=== PATIENT | male | born 1980 | race Caucasian/White ===

== ENCOUNTER → 2022-04-25 10:37 | Outpatient (CLI) | payer BC, SELFPAY ==
--- NOTE | ~2022-04-25 | XR_ITS ---
EXAMINATION: [id number] INDICATION: Anterior left chest pain TECHNIQUE: A frontal view of the chest and 3 views of the left ribs were obtained. COMPARISON: None. FINDINGS: The lungs are free of acute opacities. No pleural effusion or pneumothorax. The cardiomedia stinal silhouette is normal. There is subtle cortical irregularity at the anterolateral aspect of the left ninth rib. IMPRESSION: 1. Probable nondisplaced fracture of the anterolateral ninth rib. 2. No acute cardiopulmonary abnormality. Reviewed, dictated and finalized at location A.
== END ==
PROVIDERS: PCP Family Medicine; Visit Provider Family Medicine
DX: R07.81 Pleurodynia (principal)
CPT/HCPCS: 71101

== ENCOUNTER 2024-07-25 03:21 | Day surgery (SDC) | payer BC, SELFPAY ==
[2024-06-30 14:02] VITALS: BMI 28.1
[2024-07-25 09:12] VITALS: BP 119/75; PULSE 63; RESP 18; TEMP 36.6; O2SAT 100
[2024-07-25] MEDS: LACTATED RINGERS 1,000 ML 150 ML IV CONT (09:22)
--- NOTE | 2024-07-25 09:42 | WPDANESEPPF ---
Anes - Initial Pre Proc Eval Procedure: Operation Date: 07/25/24 10:30 Proposed Procedures p Screening Colonoscopy - Jaun Narayan MD Date/Time: 07/25/24 09:42 Surgeon: Jaun Narayan MD Pre Op Diagnosis: neoplasm screening Patient Data Age: 43 Gender: M Height: 1.75 m Weight: 88 kg Last Vital Signs Temp 36.6 C 07/25/24 09:12 Pulse 63 07/25/24 09:12 Resp 18 07/25/24 09:12 BP 119/75 07/25/24 09:12 Pulse Ox 100 07/25/24 09:12 O2 Del Method Room Air 07/25/24 09:12 Allergies Allergy/AdvReac Type Severity Reaction Status Date / Time No Known Allergies Allergy Verified 07/25/24 09:11 Home Medications Medication Instructions Recorded Confirmed Type desloratadine 5 mg tablet See Rx Instructions .Route 12/26/23 07/25/24 Rx .COMPLEX #90 tabs fluticasone propionate 50 See Rx Instructions .Route 01/14/24 07/25/24 Rx mcg/actuation nasal .COMPLEX #48 grams spray,suspension pravastatin 20 mg tablet 20 mg PO DAILY 06/30/24 07/25/24 History Patient hx anesthesia problems: none Family hx anesthesia problems: none Results Review: All pre-operative results and documents have been reviewed as part of the pre-operative evaluation. PENDING SALE TO [facility] Surgical History Surgical History History of ankle surgery Family History Family History Father Hypertension Family history of elevated blood lipids Acute myocardial infarction Family history of coronary artery disease Social History Social History Smoking packs per day: 1 Smoking cigarettes per day: 20.0 Years smoked: 1 Smoking pack-years: 1.00 Smoking status: Former smoker Smokeless tobacco user: other Alcohol intake: current Drinks per week: 3 Substance use: never Substance use type: does not use Lack of Transportation: No Lack of Food: Never True Current Housing: I Have Housing Concerned About Future Housing: No Difficulty Paying Gas/Electric Bills: No Difficulty Paying for Meds: No Currently Unemployed: No Education: Master's Degree or Higher Difficulty w/ Childcare or Family Care: No Living arrangements: with family Spiritual care concerns: No Anes - Eval Final PreProcedure Day of Procedure 07/25/24 09:42 Patient weight: overweight Heart: regular rate and rhythm Lungs: clear to auscultation Airway: Mallampati scale class II Last oral intake: >/= 8 hours ASA classification: II Emergent: no Anesthetic plan: proceed Anesthesia type and monitoring: general GIVS and standard monitoring Results Review: All pre-operative results and documents have been reviewed as part of the pre-operative evaluation. Informed Consent: The patient's anesthetic plan and its attendant risks and benefits were discussed with the patient/family/POA. Questions were solicited and answers provided to the satisfaction of the patient/family/POA.
--- NOTE | 2024-07-25 09:51 | PM.HPGS ---
History of Present Illness History of Present Illness Consent: Risks, benefits, and alternatives have been discussed and questions answered. Patient agrees to proceed with procedure. Chief complaint: neoplasm screening Narrative: Michael Guzman is a 43 year old male here for first screening colonoscopy Review of Systems Review of Systems: All systems reviewed & are unremarkable except as noted in HPI and below PMFSH Surgical History Surgical History History of ankle surgery Family History Family History Father Hypertension Family history of elevated blood lipids Acute myocardial infarction Family history of coronary artery disease Social History Social History Smoking packs per day: 1 Smoking cigarettes per day: 20.0 Years smoked: 1 Smoking pack-years: 1.00 Smoking status: Former smoker Smokeless tobacco user: other Alcohol intake: current Drinks per week: 3 Substance use: never Substance use type: does not use Lack of Transportation: No Lack of Food: Never True Current Housing: I Have Housing Concerned About Future Housing: No Difficulty Paying Gas/Electric Bills: No Difficulty Paying for Meds: No Currently Unemployed: No Education: Master's Degree or Higher Difficulty w/ Childcare or Family Care: No Living arrangements: with family Spiritual care concerns: No Meds Home Medications and Allergies Home Medications Medication Instructions Recorded Confirmed Type desloratadine 5 mg tablet See Rx Instructions .Route 12/26/23 07/25/24 Rx .COMPLEX #90 tabs fluticasone propionate 50 See Rx Instructions .Route 01/14/24 07/25/24 Rx mcg/actuation nasal .COMPLEX #48 grams spray,suspension pravastatin 20 mg tablet 20 mg PO DAILY 06/30/24 07/25/24 History Allergies Allergy/AdvReac Type Severity Reaction Status Date / Time No Known Allergies Allergy Verified 07/25/24 09:11 Vital Signs Vital Signs - 24 hr 07/25/24 09:12 Temperature 97.8 F Pulse Rate 63 Respiratory Rate 18 Blood Pressure 119/75 Pulse Oximetry 100 Oxygen Delivery Room Air Exam Const: General: comfortable and no acute distress HENMT: Face/Nose/Sinus: Normal nares present Eyes: General: appearance normal, both eyes and all related structures Neck: Neck: no JVD Resp: Auscultation: clear to auscultation bilaterally Cardio: Rate: regular rate Rhythm: regular rhythm GI: Inspection: non-distended GI Palp: Yes Soft to palpation Skin: General skin exam: normal color Neuro: General: gait normal Speech: normal speech Extrem: General: normal to inspection Psych: Mental Status: mental status grossly normal Assessment and Plan Assessment and plan (1) Encounter for screening colonoscopy: Code(s): Z12.11 - Encounter for screening for malignant neoplasm of colon Status: Acute Assessment and Plan: colonoscopy
[2024-07-25 10:05] VITALS: BP 100/59; PULSE 51; RESP 17; O2SAT 100
[2024-07-25 10:15] VITALS: BP 109/77; PULSE 51; RESP 17; O2SAT 100
[2024-07-25 10:20] VITALS: BP 111/79; PULSE 69; RESP 19; O2SAT 100
== END 2024-07-25 10:38 | disposition home or self-care (01) ==
PROVIDERS: PCP Family Medicine; Referring Provider Family Medicine; Visit Provider Internal Medicine Gastroenterology
PROC: 0DJD8ZZ Inspection of Lower Intestinal Tract, Via Natural or Artificial Opening Endoscopic (ICD-10-PCS; CPT 45378; principal; 2024-07-25 10:30)
DX: Z12.11 Encounter for screening for malignant neoplasm of colon (principal); K64.8 Other hemorrhoids; Z98.890 Other specified postprocedural states; Z87.891 Personal history of nicotine dependence; Z82.49 Family history of ischemic heart disease and other diseases of the circulatory system
CPT/HCPCS: 45378; J2704; J7120

== ENCOUNTER → 2024-08-15 11:00 | Outpatient (CLI) | payer BC, SELFPAY ==
--- NOTE | 2024-08-28 20:31 | WPDHOMESLEEP ---
Sleep Study - Home Unattended Date of Study: 08/15/24 Ordering Provider: Inga Mcfadden DO Interpreting Provider: Ligia Soni MD Home Sleep Study Type: Watch SAVANNAH Height: 1.75 m Weight: 86.183 kg Body Mass Index: 28.0 Neck Circumference (inches): 16 Mcdermitt: 3 Reason for Sleep Study Excesssive daytime sleepiness Sleep History Michael Guzman is a 43-year-old man with complaints of non-restorative sleep, daytime fatigue and excessive daytime sleepiness. He always awakens feeling tired after an average night of sleep. He has loud snoring and witnessed apneas. He peterson snot have high blood pressure. He has no complaints related to his legs, no uncomfortable feelings in his legs at night, and no kicking while asleep. He does not grind his teeth at night or clench his teeth. He is more alert in the evening compared to other times of day. He does not act out his dreams, does not have sleepwalking nor does he have other unwanted behavior in his sleep. His normal sleep schedule is bedtime at 11:30 p.m., falling asleep within a half hour, spending 6 and a half hours in bed, and 6 hours sleeping. On weekends, bedtime is an hour later, 12:30 p.m., and he falls asleep within 15 minutes, staying in bed 7 hours, sleeping 6 and a half hours. He takes no planned naps. Habits: Tobacco: none Caffeine: 3-4 cups per day Alcohol: 1-2 nights out of the week, 1 glass PMFSH Surgical History Surgical History History of ankle surgery Family History Family History Father Hypertension Family history of elevated blood lipids Acute myocardial infarction Family history of coronary artery disease Social History Social History Smoking packs per day: 1 Smoking cigarettes per day: 20.0 Years smoked: 1 Smoking pack-years: 1.00 Smoking status: Former smoker Smokeless tobacco user: other Alcohol intake: current Drinks per week: 3 Substance use: never Substance use type: does not use Lack of Transportation: No Lack of Food: Never True Current Housing: I Have Housing Concerned About Future Housing: No Difficulty Paying Gas/Electric Bills: No Difficulty Paying for Meds: No Currently Unemployed: No Education: Master's Degree or Higher Difficulty w/ Childcare or Family Care: No Living arrangements: with family Spiritual care concerns: No Medications Home Medications Medication Instructions Recorded Confirmed Type fluticasone propionate 50 See Rx Instructions .Route 01/14/24 07/25/24 Rx mcg/actuation nasal .COMPLEX #48 grams spray,suspension pravastatin 20 mg tablet 20 mg PO DAILY 06/30/24 07/25/24 History desloratadine 5 mg tablet See Rx Instructions .Route 07/28/24 Rx .COMPLEX #90 tabs Sleep Procedure The sleep study was completed using Fluidinfo a technically adequate device with seven channels: peripheral arterial tone, actigraphy, body position, snore, respiratory movement, pulse oximetry, sleep staging, and heart rate. Prior to using the device, the patient received verbal and written instructions for its application and was provided with the help desk phone number for additional telephonic instruction with 24-hour availability of qualified personnel to answer questions. Sleep Architecture The total recording time is 7 hours 23 minutes. The total sleep times is 6 hours 23 minutes. Sleep latency is 18 minutes. REM latency is 39 minutes. The patient had 10 episodes of waking. Sleep architecture shows 16.4% deep sleep, 59.6% light sleep and 26.7% stage REM. The patient spent 59.1% of total sleep time and the supine position. Sleep efficiency was 86%. Respiratory Analysis The overall apnea-hypopnea index using 4% criteria is 7.6 consistent with mild sleep apnea. The central apnea-hypopnea
[2024-08-28 20:45] VITALS: BMI 28.0
== END ==
LOC: ANHCSM 08-19 14:56
PROVIDERS: PCP Family Medicine; Visit Provider Family Medicine
DX: G47.10 Hypersomnia, unspecified (principal); G47.31 Primary central sleep apnea
CPT/HCPCS: 95800